=== PATIENT | male | born 1995 | race Caucasian/White ===

== ENCOUNTER 2022-08-22 13:14 | Emergency (ER) | payer OTHER, SELFPAY ==
[2022-08-22] VITALS (24 sets, daily range): BP systolic 123–139; BP diastolic 69–88; PULSE 65–88; RESP 17; TEMP 36.9; O2SAT 90–100; BMI 28.5
[2022-08-22 14:09] LABS: Add Manual Diff / Slide Review NO; Basophils Absolute Auto 0 /uL (0-100); Basophils Percent Auto 0.1 % (0-2); Eosinophils Absolute Auto 0 /uL (0-450); Eosinophils Percent Auto 0.2 % (2-4); Hematocrit 50.3 % (41-53); Hemoglobin 17.3 g/dL (13.5-17.5); Lymphocytes Absolute Auto 500 /uL (1100-4500); Lymphocytes Percent Auto 9.8 % (25-40); Mean Corpuscular HGB Conc 34.5 % (30-36); Mean Corpuscular Hemoglobin 29.3 PG (26-34); Mean Corpuscular Volume 84.8 fL (80-100); Monocytes Absolute Auto 300 /uL (0-900); Monocytes Percent Auto 6.1 % (3-14); Neutrophils Absolute Auto 4400 /uL (1500-7000); Neutrophils Percent Auto 83.8 % (50-75); Platelet Count 173 X10^3/uL (150-400); Red Blood Cell Count 5.92 X10^6/uL (4.5-5.9); Red Cell Distribution Width 12.7 % (11.6-14.8); White Blood Cell Count 5.2 X10^3/uL (4.5-11.0)
[2022-08-22 14:16] LABS: INR 1.2 (0.9-1.3); Prothrombin Time 13.9 SECONDS (10.1-12.7)
[2022-08-22 14:42] LABS: Alanine Aminotransferase 67 IU/L (<50); Albumin 4.6 g/dL (3.5-5.0); Albumin Globulin Ratio 1.5 (1.0-2.8); Alkaline Phosphatase 83 U/L (38-126); Aspartate Aminotransferase 35 IU/L (17-59); BUN Creatinine Ratio 18.3 (6-22); Bilirubin Total 0.8 mg/dL (0.2-1.3); Blood Urea Nitrogen 17 mg/dL (9-20); Calcium 9.4 mg/dL (8.4-10.2); Carbon Dioxide 24 mmol/L (22-32); Chloride 100 mmol/L (98-107); Estimated Glomerular Filt Rate > 60 mL/min (>60); Glucose 115 mg/dL (70-100); HEMOLYSIS < 15 (0-50); Potassium 3.9 mmol/L (3.4-5.1); Sodium 138 mmol/L (137-145); Total Protein 7.6 g/dL (6.3-8.2)
[2022-08-22 14:47] LABS: COVID-19 CEPHEID 4-PLEX PCR Negative (Negative); Influenza A - CEPHEID Flu A NEGATIVE (NEGATIVE); Influenza B - CEPHEID Flu B NEGATIVE (NEGATIVE); Respiratory Syncytial Virus Negative (Negative)
--- NOTE | 2022-08-22 15:05 | DI.CT.S_ITS ---
PROCEDURE: CT ABDOMEN PELVIS W CON INDICATIONS: Periumbilical pain TECHNIQUE: After the administration of intravenous contrast, axial sections acquired from the lung bases to the pubic symphysis. Coronal and sagittal reformats were performed. For radiation dose reduction, the following was used: automated exposure control, adjustment of mA and/or kV according to patient size. COMPARISON: None. FINDINGS: Image quality: Excellent. Lung bases: Unremarkable. Heart: No significant findings. ABDOMEN: Liver: Unremarkable. Gallbladder: Unremarkable. Biliary ducts: Unremarkable. Pancreas: Unremarkable. Spleen: Enlarged spleen measuring 16 cm greatest dimension. Adrenal Glands: Unremarkable. Kidneys and Ureters: Unremarkable. Stomach and Bowel: Stomach, small bowel loops, and colon are unremarkable. Peritoneum: No abnormal intraperitoneal fluid. No free air. Ventral Wall: No hernias. Abdominal Nodes: No retroperitoneal or mesenteric adenopathy by size criteria. Vessels: Aorta and inferior vena cava are normal in size. PELVIS: Pelvic Organs: Unremarkable. Bladder: Unremarkable. Pelvic Nodes: No enlarged lymph nodes. Miscellaneous: No hernias are seen. Bones: Unremarkable. IMPRESSION: Splenomegaly. No acute finding otherwise. Dictated by: Yohannes Valladares M.D. on 08/22/2022 at 15:35 Approved by: Yohannes Valladares M.D. on 08/22/2022 at 15:38
--- NOTE | 2022-08-22 15:09 | DI.RAD.S_ITS ---
PROCEDURE: XR CHEST 2V INDICATIONS: Coffee-ground emesis TECHNIQUE: 2 views of the chest were acquired. COMPARISON: None. FINDINGS: Surgical changes and devices: None. Lungs and pleura: Lungs are clear. No pleural effusions or pneumothorax. Mediastinum: Mediastinal contours are normal. Heart size is normal. Bones and chest wall: No suspicious bony abnormalities. Soft tissues appear unremarkable. IMPRESSION: Normal study. Dictated by: Yohannes Valladares M.D. on 08/22/2022 at 15:39 Approved by: Yohannes Valladares M.D. on 08/22/2022 at 15:40
[2022-08-22] MEDS: ONDANSETRON 4 MG/2 ML INJ IV (15:38)
[2022-08-22] MEDS: MORPHINE 4 MG/ML INJ IV (15:39)
[2022-08-22] MEDS: SODIUM CHLORIDE 0.9% 1,000 ML 1000 ML IV (15:39)
[2022-08-22] MEDS: PANTOPRAZOLE 40 MG VIAL 80 MG IV (15:54)
--- NOTE | 2022-08-22 16:52 | ED.GIBLEED ---
HPI - GI Bleed <Toni Morelos PA-C - Last Filed: 08/22/22 17:46> General Chief complaint: GI Bleed Stated complaint: headache/puking blood/body aches T-2 Time Seen by Provider: 08/22/22 13:58 Source: patient Mode of arrival: Ambulatory History of Present Illness HPI Narrative: 27-year-old male with past medical history hypertension, depression presents to the ED with 1 episode of coffee-ground emesis earlier today. Patient states that he started feeling sick about 2 days ago with fever of T-max 100.2 F, all over myalgias, abdominal pain. Patient states that the abdominal pain has been intermittent and comes in waves. Patient states that he had 1 episode of emesis earlier today, which had the appearance of coffee-grounds. No mayank blood in the vomitus. No diarrhea, hematochezia, melena. Patient endorses a history of GERD, denies history of hemorrhoids. Patient denies chest pain, shortness of breath, cough, rhinorrhea, sore throat, dysuria, lightheadedness, dizziness, syncope. Related Data Home Medications Medication Instructions Recorded Confirmed lisinopril 10 mg tablet 10 mg PO DAILY 08/22/22 08/22/22 sertraline 100 mg tablet 100 mg PO DAILY 08/22/22 08/22/22 trazodone 50 mg tablet 50 mg PO DAILY 08/22/22 08/22/22 Allergies Allergy/AdvReac Type Severity Reaction Status Date / Time No Known Drug Allergies Allergy Verified 08/22/22 13:49 Review of Systems <Toni Morelos PA-C - Last Filed: 08/22/22 17:46> Review of Systems ROS Unobtainable: All systems reviewed & are unremarkable except as noted in HPI and below Constitutional Constitutional: Reports body ache(s), Reports chills, Denies fatigue, Reports fever(s), Denies frequent falls, Denies lethargy, Reports malaise and Denies weakness Eyes Eyes: Denies change in vision, Denies eye discharge, Denies irritation and Denies loss of vision ENT Ears, Nose, Mouth, and Throat: Denies change in voice, Denies dizziness, Denies neck pain, Denies sore throat and Denies throat swelling Cardiovascular Cardiovascular: Denies chest pain, Denies irregular heart rhythm, Denies lightheadedness, Denies palpitations, Denies dyspnea, Denies dyspnea on exertion and Denies orthopnea Respiratory Respiratory: Denies cough, Denies dyspnea, Denies dyspnea on exertion and Denies wheezing Gastrointestinal Gastrointestinal: Reports abdominal pain, Denies change in bowel habits, Denies diarrhea, Reports nausea and Reports vomiting Genitourinary Genitourinary: Denies hematuria, Denies flank pain, Denies urinary incontinence and Denies urinary urgency Musculoskeletal Musculoskeletal: Denies back pain, Denies muscle weakness, Denies neck pain, Denies numbness and Denies tingling Integumentary/Breasts Skin/Breast: Denies pruritus, Denies erythema, Denies rash and Denies wounds Neurologic Neurologic: Denies behavioral changes, Denies confusion, Denies dizziness, Denies frequent falls, Denies loss of vision, Denies numbness, Denies tingling and Denies weakness Psychiatric Psychiatric: Denies anxiety, Denies behavioral changes, Denies confusion, Denies depression, Denies homicidal ideation and Denies suicidal ideation Endocrine Endocrine: Denies fatigue, Denies flushing and Denies palpitations Hematologic/Lymphatic Hematologic/Lymphatic: Denies easy bruising Allergic/Immunologic Allergic/Immunologic: Denies urticaria, Denies throat swelling and Denies wheezing Patient History <Toni Morelos PA-C - Last Filed: 08/22/22 17:46> Social History Smoking Status: Never smoker Smoking Status: Never smoker alcohol intake frequency: a few times a week Alcohol type: beer Substance Use Type: does not use Exam <Toni Morelos PA-C - Last Filed: 08/22/22 17:46> Narrative Exam Narrative: Const General:?cooperative, healthy appearing and comfortable [facility] Head:?normal to inspection Ears:?hearing grossly normal bilaterally Nose:?external nose normal Face and sinus:?normal facial exam and sinuses nontender Mouth:?oral mucosae normal Throat:?posterior oropharynx normal Eyes General:?appearance normal, both eyes and all related structures Neck Neck:?normal visual inspection and no lymphadenopathy noted Resp Effort & Inspection:?normal respiratory effort Auscultation:?clear to auscultation bilaterally Cardio Rate:?regular rate Rhythm:?regular rhythm GI Abdomen is soft, nondistended. Tender to palpation in the epigastric, periumbilical region. No CVA tenderness. Guaiac positive Neuro General:?patient alert, patient awake and patient oriented x3 Initial Vital Signs Initial Vital Signs: Vital Signs Temperature 98.4 F 08/22/22 13:45 Pulse Rate 69 08/22/22 13:45 Respiratory Rate 17 08/22/22 13:45 Blood Pressure 132/77 08/22/22 13:45 Pulse Oximetry 97 08/22/22 13:45 Oxygen Delivery Method 08/22/22 13:45 <Corey Medina DO - Last Filed: 08/23/22 07:15> Initial Vital Signs Initial Vital Signs: Vital Signs Temperature 98.4 F 08/22/22 13:45 Pulse Rate 69 08/22/22 13:45 Respiratory Rate 17 08/22/22 13:45 Blood Pressure 132/77 08/22/22 13:45 Pulse Oximetry 97 08/22/22 13:45 Oxygen Delivery Method 08/22/22 13:45 Course <Toni Morelos PA-C - Last Filed: 08/22/22 17:46> Orders Ordered: Discontinued Medications Sodium Chloride (Normal Saline 0.9%) 1,000 mls @ 1,000 mls/hr IV BOLUS ONE Stop: 08/22/22 16:04 Last Infusion: 08/22/22 16:59 Dose: 0 mls/hr Documented By: Admin: 08/22/22 15:39 Dose: 1,000 mls/hr Documented By: RB Morphine Sulfate (Morphine 4 Mg/Ml Inj) 4 mg IV NOW ONE Stop: 08/22/22 15:06 Last Admin: 08/22/22 15:39 Dose: 4 mg Documented By: RB Ondansetron HCl (Ondansetron 4 Mg/2 Ml Inj) 4 mg IV NOW ONE Stop: 08/22/22 15:06 Last Admin: 08/22/22 15:38 Dose: 4 mg Documented By: RB Pantoprazole Sodium (Pantoprazole 40 Mg Vial) 80 mg IV NOW ONE Stop: 08/22/22 15:11 Last Admin: 08/22/22 15:54 Dose: 80 mg Documented By: RB Vital Signs Vital signs: Vital Signs - 8 hr 08/22/22 13:45 08/22/22 14:04 08/22/22 14:05 Temperature 98.4 F Pulse Rate 69 65 Respiratory Rate 17 Blood Pressure 132/77 133/78 Pulse Oximetry 97 94 Oxygen Delivery Method Room Air 08/22/22 14:05 08/22/22 14:15 08/22/22 14:15 Temperature Pulse Rate 68 75 Respiratory Rate Blood Pressure 135/83 Pulse Oximetry 100 98 Oxygen Delivery Method 08/22/22 14:30 08/22/22 14:30 08/22/22 14:45 Temperature Pulse Rate 73 Respiratory Rate Blood Pressure 125/80 135/84 Pulse Oximetry 100 Oxygen Delivery Method 08/22/22 14:45 08/22/22 15:00 08/22/22 15:00 Temperature Pulse Rate 73 76 Respiratory Rate Blood Pressure 127/84 Pulse Oximetry 98 98 Oxygen Delivery Method 08/22/22 15:15 08/22/22 15:15 08/22/22 15:34 Temperature Pulse Rate 75 88 Respiratory Rate Blood Pressure 131/88 Pulse Oximetry 98 90 L Oxygen Delivery Method 08/22/22 15:51 08/22/22 15:51 08/22/22 15:55 Temperature Pulse Rate 77 Respiratory Rate Blood Pressure 133/76 135/83 Pulse Oximetry 99 Oxygen Delivery Method 08/22/22 15:55 08/22/22 16:00 08/22/22 16:00 Temperature Pulse Rate 77 77 Respiratory Rate Blood Pressure 139/83 Pulse Oximetry 96 96 Oxygen Delivery Method 08/22/22 16:05 08/22/22 16:05 08/22/22 16:10 Temperature Pulse Rate 74 Respiratory Rate Blood Pressure 137/81 133/84 Pulse Oximetry 96 Oxygen Delivery Method 08/22/22 16:10 08/22/22 16:15 08/22/22 16:15 Temperature Pulse Rate 82 73 Respiratory Rate Blood Pressure 124/73 Pulse Oximetry 96 95 Oxygen Delivery Method 08/22/22 16:20 08/22/22 16:20 08/22/22 16:25 Temperature Pulse Rate 74 75 Respiratory Rate Blood Pressure 129/79 Pulse Oximetry 97 94 Oxygen Delivery Method 08/22/22 16:25 08/22/22 16:30 08/22/22 16:30 Temperature Pulse Rate 75 Respiratory Rate Blood Pressure 133/81 136/80 Pulse Oximetry 96 Oxygen Delivery Method 08/22/22 16:35 08/22/22 16:35 08/22/22 16:40 Temperature Pulse Rate 74 Respiratory Rate Blood Pressure 130/69 131/71 Pulse Oximetry 96 Oxygen Delivery Method 08/22/22 16:40 08/22/22 16:45 08/22/22 16:45 Temperature Pulse Rate 76 72 Respiratory Rate Blood Pressure 124/70 Pulse Oximetry 95 96 Oxygen Delivery Method 08/22/22 16:50 08/22/22 16:50 08/22/22 16:54 Temperature Pulse Rate 70 74 Respiratory Rate Blood Pressure 127/74 Pulse Oximetry 97 95 Oxygen Delivery Method 08/22/22 16:55 Temperature Pulse Rate Respiratory Rate Blood Pressure 123/71 Pulse Oximetry Oxygen Delivery Method <Corey Medina, - Last Filed: 08/23/22 07:15> Orders Ordered: Discontinued Medications Sodium Chloride (Normal Saline 0.9%) 1,000 mls @ 1,000 mls/hr IV BOLUS ONE Stop: 08/22/22 16:04 Last Infusion: 08/22/22 16:59 Dose: 0 mls/hr Documented By: Admin: 08/22/22 15:39 Dose: 1,000 mls/hr Documented By: RB Morphine Sulfate (Morphine 4 Mg/Ml Inj) 4 mg IV NOW ONE Stop: 08/22/22 15:06 Last Admin: 08/22/22 15:39 Dose: 4 mg Documented By: RB Ondansetron HCl (Ondansetron 4 Mg/2 Ml Inj) 4 mg IV NOW ONE Stop: 08/22/22 15:06 Last Admin: 08/22/22 15:38 Dose: 4 mg Documented By: RB Pantoprazole Sodium (Pantoprazole 40 Mg Vial) 80 mg IV NOW ONE Stop: 08/22/22 15:11 Last Admin: 08/22/22 15:54 Dose: 80 mg Documented By: RB Vital Signs Vital signs: Vital Signs - 8 hr 08/22/22 13:45 08/22/22 14:04 08/22/22 14:05 Temperature 98.4 F Pulse Rate 69 65 Respiratory Rate 17 Blood Pressure 132/77 133/78 Pulse Oximetry 97 94 Oxygen Delivery Method Room Air 08/22/22 14:05 08/22/22 14:15 08/22/22 14:15 Temperature Pulse Rate 68 75 Respiratory Rate Blood Pressure 135/83 Pulse Oximetry 100 98 Oxygen Delivery Method 08/22/22 14:30 08/22/22 14:30 08/22/22 14:45 Temperature Pulse Rate 73 Respiratory Rate Blood Pressure 125/80 135/84 Pulse Oximetry 100 Oxygen Delivery Method 08/22/22 14:45 08/22/22 15:00 08/22/22 15:00 Temperature Pulse Rate 73 76 Respiratory Rate Blood Pressure 127/84 Pulse Oximetry 98 98 Oxygen Delivery Method 08/22/22 15:15 08/22/22 15:15 08/22/22 15:34 Temperature Pulse Rate 75 88 Respiratory Rate Blood Pressure 131/88 Pulse Oximetry 98 90 L Oxygen Delivery Method 08/22/22 15:51 08/22/22 15:51 08/22/22 15:55 Temperature Pulse Rate 77 Respiratory Rate Blood Pressure 133/76 135/83 Pulse Oximetry 99 Oxygen Delivery Method 08/22/22 15:55 08/22/22 16:00 08/22/22 16:00 Temperature Pulse Rate 77 77 Respiratory Rate Blood Pressure 139/83 Pulse Oximetry 96 96 Oxygen Delivery Method 08/22/22 16:05 08/22/22 16:05 08/22/22 16:10 Temperature Pulse Rate 74 Respiratory Rate Blood Pressure 137/81 133/84 Pulse Oximetry 96 Oxygen Delivery Method 08/22/22 16:10 08/22/22 16:15 08/22/22 16:15 Temperature Pulse Rate 82 73 Respiratory Rate Blood Pressure 124/73 Pulse Oximetry 96 95 Oxygen Delivery Method 08/22/22 16:20 08/22/22 16:20 08/22/22 16:25 Temperature Pulse Rate 74 75 Respiratory Rate Blood Pressure 129/79 Pulse Oximetry 97 94 Oxygen Delivery Method 08/22/22 16:25 08/22/22 16:30 08/22/22 16:30 Temperature Pulse Rate 75 Respiratory Rate Blood Pressure 133/81 136/80 Pulse Oximetry 96 Oxygen Delivery Method 08/22/22 16:35 08/22/22 16:35 08/22/22 16:40 Temperature Pulse Rate 74 Respiratory Rate Blood Pressure 130/69 131/71 Pulse Oximetry 96 Oxygen Delivery Method 08/22/22 16:40 08/22/22 16:45 08/22/22 16:45 Temperature Pulse Rate 76 72 Respiratory Rate Blood Pressure 124/70 Pulse Oximetry 95 96 Oxygen Delivery Method 08/22/22 16:50 08/22/22 16:50 08/22/22 16:54 Temperature Pulse Rate 70 74 Respiratory Rate Blood Pressure 127/74 Pulse Oximetry 97 95 Oxygen Delivery Method 08/22/22 16:55 Temperature Pulse Rate Respiratory Rate Blood Pressure 123/71 Pulse Oximetry Oxygen Delivery Method MDM - GI Bleed <Toni Morelos PA-C - Last Filed: 08/22/22 17:46> Lab Data 08/22/22 13:55 08/22/22 13:55 Labs: Lab Results 08/22/22 08/22/22 08/22/22 Range/Units 13:55 13:55 13:55 WBC 5.2 (4.5-11.0) X10^3/uL RBC 5.92 H (4.5-5.9) X10^6/uL Hgb 17.3 (13.5-17.5) g/dL Hct 50.3 (41-53) % MCV 84.8 (80-100) fL MCH 29.3 (26-34) PG MCHC 34.5 (30-36) % RDW 12.7 (11.6-14.8) % Plt Count 173 (150-400) X10^3/uL Neut % (Auto) 83.8 H (50-75) % Lymph % (Auto) 9.8 L (25-40) % [place] % (Auto) 6.1 (3-14) % Eos % (Auto) 0.2 L (2-4) % Baso % (Auto) 0.1 (0-2) % Neut # (Auto) 4400 (3814-8502) /uL Lymph # (Auto) 500 L (0594-7334) /uL [place] # (Auto) 300 (0-900) /uL Eos # (Auto) 0 (0-450) /uL Baso # (Auto) 0 (0-100) /uL PT 13.9 H (10.1-12.7) SECONDS INR 1.2 (0.9-1.3) Sodium 138 (137-145) mmol/L Potassium 3.9 (3.4-5.1) mmol/L Chloride 100 (98-107) mmol/L Carbon Dioxide 24 (22-32) mmol/L BUN 17 (9-20) mg/dL Creatinine 0.93 (0.66-1.25) mg/dL Estimated GFR > 60 (>60) mL/min BUN/Creatinine Ratio 18.3 (6-22) Glucose 115 H (70-100) mg/dL Calcium 9.4 (8.4-10.2) mg/dL Total Bilirubin 0.8 (0.2-1.3) mg/dL AST 35 (17-59) IU/L ALT 67 H (<50) IU/L Alkaline Phosphatase 83 (38-126) U/L Total Protein 7.6 (6.3-8.2) g/dL Albumin 4.6 (3.5-5.0) g/dL Globulin 3.0 (1.7-4.1) g/dL Albumin/Globulin Ratio 1.5 (1.0-2.8) SARS-CoV-2 (PCR) (Negative) Influenza A (RT-PCR) (NEGATIVE) Influenza B (RT-PCR) (NEGATIVE) RSV (PCR) (Negative) Blood Type Antibody Screen 08/22/22 08/22/22 Range/Units 13:55 13:55 WBC (4.5-11.0) X10^3/uL RBC (4.5-5.9) X10^6/uL Hgb (13.5-17.5) g/dL Hct (41-53) % MCV (80-100) fL MCH (26-34) PG MCHC (30-36) % RDW (11.6-14.8) % Plt Count (150-400) X10^3/uL Neut % (Auto) (50-75) % Lymph % (Auto) (25-40) % [place] % (Auto) (3-14) % Eos % (Auto) (2-4) % Baso % (Auto) (0-2) % Neut # (Auto) (2899-4048) /uL Lymph # (Auto) (9561-3770) /uL [place] # (Auto) (0-900) /uL Eos # (Auto) (0-450) /uL Baso # (Auto) (0-100) /uL PT (10.1-12.7) SECONDS INR (0.9-1.3) Sodium (137-145) mmol/L Potassium (3.4-5.1) mmol/L Chloride (98-107) mmol/L Carbon Dioxide (22-32) mmol/L BUN (9-20) mg/dL Creatinine (0.66-1.25) mg/dL Estimated GFR (>60) mL/min BUN/Creatinine Ratio (6-22) Glucose (70-100) mg/dL Calcium (8.4-10.2) mg/dL Total Bilirubin (0.2-1.3) mg/dL AST (17-59) IU/L ALT (<50) IU/L Alkaline Phosphatase (38-126) U/L Total Protein (6.3-8.2) g/dL Albumin (3.5-5.0) g/dL Globulin (1.7-4.1) g/dL Albumin/Globulin Ratio (1.0-2.8) SARS-CoV-2 (PCR) Negative (Negative) Influenza A (RT-PCR) Flu a negative (NEGATIVE) Influenza B (RT-PCR) Flu b negative (NEGATIVE) RSV (PCR) Negative (Negative) Blood Type O Positive Antibody Screen Negative Point of Care Testing Stool Occult Blood Positive Urine Dip Bedside Urine Glucose Negative Bedside Urine Bilirubin - Negative Bedside Urine Ketone - Negative Urine Specific [place] 1.010 Bedside Urine Occult Blood - Negative Bedside Urine pH 6.0 Bedside Urine Protein - Negative Bedside Urine Urobilinogen - Negative Bedside Urine Nitrite - Negative Bedside Urine Leukocytes - Negative Esterase MDM Narrative Medical decision making narrative: 27-year-old male with past medical history hypertension, depression presents to the ED with 1 episode of coffee-ground emesis earlier today. Concern for upper GI bleed versus Estrellita-Wilcox tear versus anemia versus dehydration versus intra-abdominal pathology versus viral syndrome versus other. Will obtain labs, UA, guaiac, type and screen, coags, respiratory panel, CT abdomen pelvis. Will give IV fluids, morphine, Zofran for symptoms. H&H stable at 17 over 50. All other labs within normal limits. Respiratory panel negative for COVID-19, flu, RSV. Guaiac was positive. CT abdomen pelvis shows splenomegaly and no other abnormal results. EKG was obtained with a normal sinus rhythm, no acute ST-T changes, no axis deviation. Patient remained stable through the course of the ED. [place] Angela scale 0, patient is stable to discharge home. Discussed findings with patient, patient agrees to follow-up with PCP, GI to follow-up on the splenomegaly and the GI bleed. ED return precautions were discussed with patient. Patient verbalized understanding. Medical records reviewed: Yes <Corey Medina DO - Last Filed: 08/23/22 07:15> Lab Data Labs: Lab Results 08/22/22 08/22/22 08/22/22 Range/Units 13:55 13:55 13:55 WBC 5.2 (4.5-11.0) X10^3/uL RBC 5.92 H (4.5-5.9) X10^6/uL Hgb 17.3 (13.5-17.5) g/dL Hct 50.3 (41-53) % MCV 84.8 (80-100) fL MCH 29.3 (26-34) PG MCHC 34.5 (30-36) % RDW 12.7 (11.6-14.8) % Plt Count 173 (150-400) X10^3/uL Neut % (Auto) 83.8 H (50-75) % Lymph % (Auto) 9.8 L (25-40) % [place] % (Auto) 6.1 (3-14) % Eos % (Auto) 0.2 L (2-4) % Baso % (Auto) 0.1 (0-2) % Neut # (Auto) 4400 (6842-7964) /uL Lymph # (Auto) 500 L (6337-1773) /uL [place] # (Auto) 300 (0-900) /uL Eos # (Auto) 0 (0-450) /uL Baso # (Auto) 0 (0-100) /uL PT 13.9 H (10.1-12.7) SECONDS INR 1.2 (0.9-1.3) Sodium 138 (137-145) mmol/L Potassium 3.9 (3.4-5.1) mmol/L Chloride 100 (98-107) mmol/L Carbon Dioxide 24 (22-32) mmol/L BUN 17 (9-20) mg/dL Creatinine 0.93 (0.66-1.25) mg/dL Estimated GFR > 60 (>60) mL/min BUN/Creatinine Ratio 18.3 (6-22) Glucose 115 H (70-100) mg/dL Calcium 9.4 (8.4-10.2) mg/dL Total Bilirubin 0.8 (0.2-1.3) mg/dL AST 35 (17-59) IU/L ALT 67 H (<50) IU/L Alkaline Phosphatase 83 (38-126) U/L Total Protein 7.6 (6.3-8.2) g/dL Albumin 4.6 (3.5-5.0) g/dL Globulin 3.0 (1.7-4.1) g/dL Albumin/Globulin Ratio 1.5 (1.0-2.8) SARS-CoV-2 (PCR) (Negative) Influenza A (RT-PCR) (NEGATIVE) Influenza B (RT-PCR) (NEGATIVE) RSV (PCR) (Negative) Blood Type Antibody Screen 08/22/22 08/22/22 Range/Units 13:55 13:55 WBC (4.5-11.0) X10^3/uL RBC (4.5-5.9) X10^6/uL Hgb (13.5-17.5) g/dL Hct (41-53) % MCV (80-100) fL MCH (26-34) PG MCHC (30-36) % RDW (11.6-14.8) % Plt Count (150-400) X10^3/uL Neut % (Auto) (50-75) % Lymph % (Auto) (25-40) % [place] % (Auto) (3-14) % Eos % (Auto) (2-4) % Baso % (Auto) (0-2) % Neut # (Auto) (5246-6170) /uL Lymph # (Auto) (9583-7364) /uL [place] # (Auto) (0-900) /uL Eos # (Auto) (0-450) /uL Baso # (Auto) (0-100) /uL PT (10.1-12.7) SECONDS INR (0.9-1.3) Sodium (137-145) mmol/L Potassium (3.4-5.1) mmol/L Chloride (98-107) mmol/L Carbon Dioxide (22-32) mmol/L BUN (9-20) mg/dL Creatinine (0.66-1.25) mg/dL Estimated GFR (>60) mL/min BUN/Creatinine Ratio (6-22) Glucose (70-100) mg/dL Calcium (8.4-10.2) mg/dL Total Bilirubin (0.2-1.3) mg/dL AST (17-59) IU/L ALT (<50) IU/L Alkaline Phosphatase (38-126) U/L Total Protein (6.3-8.2) g/dL Albumin (3.5-5.0) g/dL Globulin (1.7-4.1) g/dL Albumin/Globulin Ratio (1.0-2.8) SARS-CoV-2 (PCR) Negative (Negative) Influenza A (RT-PCR) Flu a negative (NEGATIVE) Influenza B (RT-PCR) Flu b negative (NEGATIVE) RSV (PCR) Negative (Negative) Blood Type O Positive Antibody Screen Negative Point of Care Testing Stool Occult Blood Positive Urine Dip Bedside Urine Glucose Negative Bedside Urine Bilirubin - Negative Bedside Urine Ketone - Negative Urine Specific [place] 1.010 Bedside Urine Occult Blood - Negative Bedside Urine pH 6.0 Bedside Urine Protein - Negative Bedside Urine Urobilinogen - Negative Bedside Urine Nitrite - Negative Bedside Urine Leukocytes - Negative Esterase Discharge Plan Departure Patient Disposition: Home Clinical Impression: Acute upper GI bleed Instructions: Gastrointestinal Bleeding Activity Restrictions/Additional Instructions: You were evaluated in the ED today for coffee-ground vomit and abdominal pain. Your labs and urine were normal. You tested negative for COVID-19, flu, RSV. The rectal bleeding test was positive. The CT abdomen pelvis showed an enlarged spleen but no other abnormalities. Spleen enlargement can be due to multiple reasons including infection. Please follow-up with your PCP for further workup and monitoring of the enlarged spleen. Please also follow-up with a GI specialist to follow-up on the gastrointestinal bleeding. Please return to the ED if you have repeat episodes of coffee-ground vomit, you feel short of breath, you experience chest pain. Prescriptions: No Action trazodone 50 mg tablet 50 mg PO DAILY sertraline 100 mg tablet 100 mg PO DAILY lisinopril 10 mg tablet 10 mg PO DAILY Referrals: Miscellaneous,Doctor, MD [Primary Care Provider] - Stand Alone Forms: Patient Portal/API <Corey Medina DO - Last Filed: 08/23/22 07:15> Cosign ED Attending Cosignature Attestation: I was immediately available in the department for consultation. This documentation has been reviewed and I agree with assessment and plan. Supervised by Corey Medina DO
== END 2022-08-22 17:42 | disposition home or self-care (01) ==
PROVIDERS: Emergency Medicine; Emergency Provider Student in an Organized Health Care Education/Training Program
DX: K92.2 Gastrointestinal hemorrhage, unspecified (principal); R10.9 Unspecified abdominal pain; Z20.822 Contact with and (suspected) exposure to COVID-19
CPT/HCPCS: 0241U; 36415; 71046; 74177; 80053; 81003; 82272; 85025; 85610; 86850; 86900; 86901; 93005; 96361; 96374; 96375; 99284; C9113; J2270; J2405; Q9967